=== PATIENT | male | born 1980 | race Caucasian/White ===

== ENCOUNTER 2017-03-23 15:21 | Emergency (ER) | payer BC ==
--- NOTE | 2017-03-23 15:30 | EDM.PDOC ---
ED HPI GENERAL MEDICAL PROBLEM - General Chief Complaint: Laceration Stated Complaint: CUT TO HEAD Time Seen by Provider: 03/23/17 15:26 - History of Present Illness INITIAL COMMENTS - FREE TEXT/NARRATIVE: HISTORY AND PHYSICAL: History of present illness: Patient is a 36-year-old white male presents with concern of scalp laceration this occurred when he hit his head on the door frame there is no loss of consciousness other trauma or concern he denies up-to-date tetanus he denies neck pain denies nausea vomiting visual disturbance or any other complaint. Review of systems: As per history of present illness and below otherwise all systems reviewed and negative. Past medical history: As per history of present illness and as reviewed below otherwise noncontributory. Surgical history: As per history of present illness and as reviewed below otherwise noncontributory. Social history: No reported history of drug or alcohol abuse. Family history: As per history of present illness and as reviewed below otherwise noncontributory. Physical exam: HEENT: Patient has approximately 3 cm moderate of laceration of his frontal scalp is no step-off no depression is good hemostasis, normocephalic, pupils reactive, negative for conjunctival pallor or scleral icterus, mucous membranes moist, throat clear, neck supple, nontender, trachea midline. Lungs: Clear to auscultation, breath sounds equal bilaterally, chest nontender. Heart: S1S2, regular, negative for clicks, rubs, or JVD. Abdomen: Soft, nondistended, nontender. Negative for masses or hepatosplenomegaly. Negative for costovertebral tenderness. Pelvis: Stable nontender. Genitourinary: Deferred. Rectal: Deferred. Extremities: Atraumatic, negative for cords or calf pain. Neurovascular unremarkable. Neuro: Awake, alert, oriented. Cranial nerves II through XII unremarkable. Cerebellum unremarkable. Motor and sensory unremarkable throughout. Exam nonfocal. Diagnostics: None Therapeutics: Tetanus was updated wound was irrigated copious amounts 0.9 normal saline prepped and draped in sterile manner close with stainless steel kathryn Impression: #1 minor head injury with scalp laceration Definitive disposition and diagnosis as appropriate pending reevaluation and review of above. ED ROS GENERAL - Review of Systems Review Of Systems: ROS reveals no pertinent complaints other than HPI. ED EXAM, SKIN/RASH Exam: See Below (See dictation) Departure - Departure Time of Disposition: 15:29 Disposition: Home, Self-Care 01 Condition: Good Clinical Impression: Head injury, Scalp laceration - Discharge Information Forms: ED Department Discharge Additional Instructions: The following information is given to patients seen in the emergency department who are being discharged to home. This information is to outline your options for follow-up care. We provide all patients seen in our emergency department with a follow-up referral. The need for follow-up, as well as the timing and circumstances, are variable depending upon the specifics of your emergency department visit. If you don't have a primary care physician on staff, we will provide you with a referral. We always advise you to contact your personal physician following an emergency department visit to inform them of the circumstance of the visit and for follow-up with them and/or the need for any referrals to a consulting specialist. The emergency department will also refer you to a specialist when appropriate. This referral assures that you have the opportunity for followup care with a specialist. All of these measure are taken in an effort to provide you with optimal care, which includes your followup. Under all circumstances we always encourage you to contact your private physician who remains a resource for coordinating your care. When calling for followup care, please make the office aware that this follow-up is from your recent emergency room visit. If for any reason you are refused follow-up, please contact the [facility] emergency department at and asked to speak to the emergency department charge nurse. Follow primary medical doctor 1-2 days staple removal 10-14 days return as needed as discussed]
[2017-03-23] MEDS ORDERED: Bacitracin Oint 1 GM U/D Packet TOP ONE (15:38)
[2017-03-23 16:39] VITALS: BP 124/57
== END 2017-03-23 16:38 | disposition home or self-care (01) ==
LOC: MW.ED 15:21
DX: S01.01XA Laceration without foreign body of scalp, initial encounter (principal); S09.90XA Unspecified injury of head, initial encounter; W22.8XXA Striking against or struck by other objects, initial encounter
CPT/HCPCS: 12002; 99283

== ENCOUNTER 2017-04-02 16:47 | Emergency (ER) | payer BC ==
[2017-04-02 17:01] VITALS: BP 128/62
== END 2017-04-02 16:58 | disposition left against medical advice (07) ==
LOC: MW.ED 16:47
DX: Z53.21 Procedure and treatment not carried out due to patient leaving prior to being seen by health care provider (principal)

== ENCOUNTER 2021-02-18 16:11 | Emergency (ER) | payer BC ==
[2021-02-18] MEDS ORDERED: Cephalexin 500 MG Cap PO ONE ×2 (16:42)
[2021-02-18] MEDS ORDERED: Diphtheria,Pertussis(Acell),Tetanus Vaccine 0.5 ML Syringe IM ONE (16:43)
--- NOTE | 2021-02-18 16:47 | EDM.PDOC ---
ED HPI GENERAL MEDICAL PROBLEM - General Chief Complaint: Upper Extremity Injury/Pain Stated Complaint: LFT POINTROJAS PERDOMO HURT Time Seen by Provider: 02/18/21 16:39 - History of Present Illness INITIAL COMMENTS - FREE TEXT/NARRATIVE: History of present illness: [] This healthy 40-year-old male cut his finger with a X-Acto knife this morning at 6 AM. It was a very small accidental stab wound to the tip of the index finger. The patient then later in the day was using an air compressor and he accidentally shot the nozzle into the laceration blowing up his finger and feeling like there was pressure and crepitation to the MPJ of the volar side of the finger and then there was the feeling of pressure up his forearm. Review of systems: As per history of present illness and below otherwise all systems reviewed and negative. Past medical history: As per history of present illness and as reviewed below otherwise noncontributory. Surgical history: As per history of present illness and as reviewed below otherwise nonco ntributory. Social history: No reported history of drug or alcohol abuse. Family history: As per history of present illness and as reviewed below otherwise noncontributory. Physical exam: Constitutional - well developed, well-nourished and in no acute distress HEENT - normocephalic, no evidence of trauma - external nose and mouth normal - no mass in neck and no JVD - mucosae moist EYES - full EOM, PERRL, no icterus - no evidence of inflammation, injection, or drainage Respiratory - no respiratory distress, equal bilateral expansion Circulatory capillary refill intact in the pink warm digits of the left upper extremity. Musculoskeletal tenderness in the volar finger #2 of the left upper extremity. Normal range of motion. No gross deformity of long bones or joints - no tenderness, swelling or edema Neurologic - Alert and oriented times four - CN II-XII grossly intact - motor sensory and coordination symmetrically normal Psychiatric - appropriate mood and affect with normal thought content Hematologic - No petechiae or purpura - mucosa appropriate color and sclera not pale - normal nail bed color and refill Integument - no rash or evidence of trauma - normal turgor Diagnostics: [] Therapeutics: [] Impression: [] Plan: [] Definitive disposition and diagnosis as appropriate pending reevaluation and review of above. Finger-Index Pain Score (Numeric/FACES): 1 - Related Data Allergies Allergy/AdvReac Type Severity Reaction Status Date / Time No Known Allergies Allergy Verified 02/18/21 16:43 Home Meds: Home Meds cephALEXin [Cephalexin] 500 mg PO BID #14 capsule 02/18/21 [Rx] Past Medical History - Past Health History Medical/Surgical History: Denies Medical/Surgical History HEENT History: Reports: None Cardiovascular History: Reports: None Respiratory History: Reports: Asthma Gastrointestinal History: Reports: None Genitourinary History: Reports: None Musculoskeletal History: Reports: None Neurological History: Reports: None Psychiatric History: Reports: None Endocrine/Metabolic History: Reports: None Hematologic History: Reports: None Immunologic History: Reports: None Oncologic (Cancer) History: Reports: None Dermatologic History: Reports: None - Infectious Disease History Infectious Disease History: Reports: None - Past Surgical History Head Surgeries/Procedures: Reports: None HEENT Surgical History: Reports: None Cardiovascular Surgical History: Reports: None GI Surgical History: Reports: None Male Surgical History: Reports: None Endocrine Surgical History: Reports: None Musculoskeletal Surgical History: Reports: None Dermatological Surgical History: Reports: None Social & Family History - Family History Family Medical History: No Pertinent Family History - Caffeine Use Caffeine Use: Reports: None Review of Systems - Review of Systems Review Of Systems: Comprehensive ROS is negative, except as noted in HPI. ED EXAM, GENERAL - Physical Exam Exam: See Below Free Text/Narrative:: My physical exam is in the HPI Course - Vital Signs Text/Narrative:: I handed the patient a Keflex to take in 12 hours because this is Friday and the only pharmacy in [place] now that is open will be closed before he leaves the department. X-ray reveals a little bit of air in the finger but no air in the forearm. There is what looks like a soft tissue swelling 3 inches proximal to the joint along the radial edge but reexamination of the patient reveals no acute tender red swollen and warm area in that area. Patient is warned about potential compartment syndrome and discharged in satisfactory condition. Last Recorded V/S: Last Vital Signs Temp 36.6 C 02/18/21 16:44 Pulse 69 02/18/21 16:44 Resp 16 02/18/21 16:44 BP 115/69 02/18/21 16:44 Pulse Ox 96 02/18/21 16:44 - Orders/Labs/Meds Orders: Active Orders 24 hr Category Date Time Status Vaccines to be Administered [RC] PER UNIT ROUTINE Care 02/18/21 16:43 Active Forearm 2V Lt [CR] Stat Exams 02/18/21 16:44 Taken Hand 2V Lt [CR] Stat Exams 02/18/21 16:44 Taken Meds: Medications Discontinued Medications Generic Name Dose Route Start Last Admin Trade Name Freq PRN Reason Stop Dose Admin Cephalexin 500 mg 02/18/21 16:42 Cephalexin 500 Mg Cap PO 02/18/21 16:43 ONETIME ONE Cephalexin 500 mg 02/18/21 16:42 Cephalexin 500 Mg Cap PO 02/18/21 16:43 ONETIME ONE Diphtheria/Tetanus/Acell Pertussis 0.5 ml 02/18/21 16:43 Diphtheria,Pertussis(Acell),Tetanus Vaccine 0.5 Ml Syringe IM 02/18/21 16:44 .ONCE ONE Departure - Departure Time of Disposition: 17:10 Disposition: Home, Self-Care 01 Condition: Good Clinical Impression: Laceration of finger of left hand, High-pressure injection injury of finger - Discharge Information Prescriptions: cephALEXin [Cephalexin] 500 mg PO BID #14 capsule Instructions: Acute Compartment Syndrome, Laceration Care, Adult Referrals: Francis Mccarty MD [Primary Care Provider] - Forms: ED Department Discharge Additional Instructions: [facility] [address], [address] [place] [address] The following information is given to patients seen in the emergency department who are being discharged to home. This information is to outline your options for follow-up care. We provide all patients seen in our emergency department with a follow-up referral. The need for follow-up, as well as the timing and circumstances, are variable depending upon the specifics of your emergency department visit. If you don't have a primary care physician on staff, we will provide you with a referral. We always advise you to contact your personal physician following an emergency department visit to inform them of the circumstance of the visit and for follow-up with them and/or the need for any referrals to a consulting specialist. The emergency department will also refer you to a specialist when appropriate. This referral assures that you have the opportunity for follow-up care with a specialist. All of these measure are taken in an effort to provide you with optimal care, which includes your follow-up. Under all circumstances we always encourage you to contact your private physician who remains a resource for coordinating your care. When calling for follow-up care, please make the office aware that this follow-up is from your recent emergency room visit. If for any reason you are refused follow-up, please contact the [facility] Emergency Department at and asked to speak to the emergency department charge nurse. Sepsis Event Note (ED) - Focused Exam Vital Signs: Vital Signs Temp Pulse Resp BP Pulse Ox 02/18/21 16:44 36.6 C 69 16 115/69 96 - My Orders Last 24 Hours: My Active Orders 02/18/21 16:43 Vaccines to be Administered [RC] PER UNIT ROUTINE 02/18/21 16:44 Forearm 2V Lt [CR] Stat Hand 2V Lt [CR] Stat - Assessment/Plan Last 24 Hours: My Active Orders 02/18/21 16:43 Vaccines to be Administered [RC] PER UNIT ROUTINE 02/18/21 16:44 Forearm 2V Lt [CR] Stat Hand 2V Lt [CR] Stat
[2021-02-18 16:48] VITALS: BP 115/69; PULSE 69
--- NOTE | 2021-02-18 17:05 | CR ---
Indication: Questionable injury. Technique: Two views of the left forearm. Comparison: None Findings: No acute fracture or subluxation is identified. The joint spaces are well maintained. Impression: No acute fracture Dictated by Eloise Renner MD @ 02/18/2021 5:04:[address] Eloise Renner @ Feb 18 2021 5:04PM
--- NOTE | 2021-02-18 17:07 | CR ---
Indication: Questionable injury. Technique: Two views of the left hand. Comparison: None Findings: Mild degenerative changes of the left hand are identified. No fracture subluxation is identified. It does appear that there is air within the soft tissues of the right 2nd finger. Impression: Air is identified within the soft tissues of the 2nd finger, uncertain etiology and uncertain clinical importance. However, no bony erosions are identified to suggest osteomyelitis. Dictated by Eloise Renner MD @ 02/18/2021 5:05:[address] Eloise Renner @ Feb 18 2021 5:05PM
== END 2021-02-18 17:12 | disposition home or self-care (01) ==
LOC: MW.ED 16:11
DX: S61.211A Laceration without foreign body of left index finger without damage to nail, initial encounter (principal); L89.899 Pressure ulcer of other site, unspecified stage; J45.909 Unspecified asthma, uncomplicated; Z23 Encounter for immunization; W26.0XXA Contact with knife, initial encounter
CPT/HCPCS: 73090; 73120; 90471; 90715; 99282; A9270; 99283